=== PATIENT | female | born 1940 | race Caucasian/White ===

== ENCOUNTER 2018-01-23 13:55 | Outpatient (CLI) | payer MEDICARE, BC | END 2018-01-23 13:56 | disposition home or self-care (01) | LOC: BICRAD 13:55 | PROVIDERS: ATTEND Internal Medicine | DX: R05 Cough (principal) | CPT/HCPCS: 71046 ==

== ENCOUNTER 2018-04-24 08:17 | Outpatient (CLI) | payer MEDICARE, BC | END 2018-04-24 08:18 | disposition home or self-care (01) | LOC: BICMAMMO 08:17 | PROVIDERS: ATTEND Internal Medicine | DX: Z12.31 Encounter for screening mammogram for malignant neoplasm of breast (principal); Z80.3 Family history of malignant neoplasm of breast | CPT/HCPCS: 77063; 77067 ==

== ENCOUNTER 2019-05-19 14:25 | Outpatient (CLI) | payer MEDICARE, BC ==
--- NOTE | 2019-05-19 15:36 | RAD ---
EXAM: Chest PA and lateral: HISTORY: Cough x2 months COMPARISON: 01/23/2018 FINDINGS: Heart: Normal cardiac silhouette Aorta: Unremarkable Pulmonary vessels: Normal Costophrenic angles: Costophrenic angles are clear. Lungs: No masses or consolidation. Mild hyperinflation with chronic changes. Pneumothorax: No pneumothorax Osseous structures: No osseous abnormalities IMPRESSION: No acute cardiopulmonary process.
== END 2019-05-19 14:26 | disposition home or self-care (01) ==
LOC: BICRAD 14:25
PROVIDERS: ATTEND Internal Medicine
DX: R05 Cough (principal)
CPT/HCPCS: 71046

== ENCOUNTER 2020-10-06 10:52 | Outpatient (CLI) | payer MEDICARE, BC | END 2020-10-06 10:53 | disposition home or self-care (01) | LOC: BICMAMMO 10:52 | PROVIDERS: ATTEND Internal Medicine | DX: Z12.31 Encounter for screening mammogram for malignant neoplasm of breast (principal); N63.15 Unspecified lump in the right breast, overlapping quadrants | CPT/HCPCS: 77063; 77067 ==

== ENCOUNTER 2020-10-11 13:43 | Outpatient (CLI) | payer MEDICARE, BC | END 2020-10-11 13:44 | disposition home or self-care (01) | LOC: BICULT 13:43 | PROVIDERS: ATTEND Internal Medicine | DX: N63.12 Unspecified lump in the right breast, upper inner quadrant (principal) ==

== ENCOUNTER → 2020-10-13 | Day surgery (SDC) | payer MEDICARE, BC | LOC: BICULT 07:06 | PROVIDERS: ATTEND Internal Medicine | PROC: 0H9T3ZX Drainage of Right Breast, Percutaneous Approach, Diagnostic (ICD-10-PCS; principal; 2020-10-13) | DX: C50.811 Malignant neoplasm of overlapping sites of right female breast (principal) | CPT/HCPCS: 19083; 88305; 88341; 88342; 88361 ==

== ENCOUNTER 2020-11-09 10:24 | Outpatient (CLI) | payer MEDICARE, BC ==
[2020-11-09 11:31] LABS: #Basophils 0.1 10x3/uL (0.0-0.2); #Eosinphils 0.3 10x3/uL (0.0-0.5); #Monocytes 0.9 10x3/uL (0.0-1.1); #Neutrophils 3.8 10x3/uL (1.5-8.4); %Basophils 1.5 % (0.0-2.0); %Eosinophils 4.4 % (0.0-6.0); %Monocytes 12.9 % (0.0-10.0); %Neutrophils 57.4 % (40.0-75.0); Hemoglobin 13.4 g/dL (12.0-15.5); Mean Corpuscular Hemoglobin 28.5 pg (27.0-33.0); Mean Corpuscular Volume 89.1 fl (81.6-98.3); Mean Platelet Volume 10.6 fl (7.4-10.4); Platelet Count 266 10x3/uL (150-450); RBC Distribution Width 13.7 % (11.5-14.5); White Blood Cell (WBC) Count 6.6 10x3/uL (3.5-10.5)
[2020-11-09 11:50] LABS: Anion Gap 14 mmol/L (10-20); BUN (Urea Nitrogen) 20 mg/dL (9.8-20.1); Calc. Creatinine Clearance 0 mL/min (70-130); Calcium 9.1 mg/dL (7.8-10.44); Carbon Dioxide 24 mmol/L (23-31); Chloride 102 mmol/L (98-107); Glucose 83 mg/dL (83-110); Potassium 4.3 mmol/L (3.5-5.1); Sodium 136 mmol/L (136-145)
[2020-11-09 22:12] LABS: SARS-CoV-2 PCR by NAA Not Detected (NotDetected)
== END 2020-11-09 10:25 | disposition home or self-care (01) ==
LOC: LABBT 10:24
PROVIDERS: ATTEND Surgery
DX: Z01.818 Encounter for other preprocedural examination (principal); C50.911 Malignant neoplasm of unspecified site of right female breast; I44.0 Atrioventricular block, first degree; Z20.822 Contact with and (suspected) exposure to COVID-19
CPT/HCPCS: 80048; 85025; 93005; U0003; U0005; 87635; 93010

== ENCOUNTER 2020-11-14 06:53 | Day surgery (SDC) | payer MEDICARE, BC ==
[2020-11-13 13:39] VITALS: BMI 32.1
[2020-11-14] MEDS ORDERED: Lidocaine 1% w/Epinephrine 1:100K 20 ML VIAL ONE (09:51)
[2020-11-14] MEDS ORDERED: Bupivacaine 0.25% HCL 30 ML VIAL ONE (09:51)
[2020-11-14] MEDS ORDERED: Methylene Blue 50 MG/10 ML AMPUL ONE (09:51)
[2020-11-14] MEDS ORDERED: Fentanyl 100 MCG/2 ML VIAL ONE (09:55)
[2020-11-14] MEDS ORDERED: Lidocaine 1% PF 5 ML VIAL ONE (10:10)
[2020-11-14] MEDS ORDERED: PHENYLEPHRINE-NS 100 MCG/ML 10 ML SYRINGE ONE (10:10)
[2020-11-14] MEDS ORDERED: ePHEDrine Sulfate 50 MG/10 ML VIAL ONE (10:10)
[2020-11-14] MEDS ORDERED: Ondansetron PF 4 MG/2 ML Vial ONE (10:10)
[2020-11-14] MEDS ORDERED: Dexamethasone 20 MG/5 ML VIAL ONE (10:10)
[2020-11-14] MEDS ORDERED: PROPOFOL 200 MG/20 ML VIAL ONE (10:10)
== END 2020-11-14 13:45 | disposition home or self-care (01) ==
LOC: SDC 06:53
PROVIDERS: ATTEND Surgery
PROC: 0HBT0ZZ Excision of Right Breast, Open Approach (ICD-10-PCS; principal; 2020-11-14)
PROC: 07T50ZZ Resection of Right Axillary Lymphatic, Open Approach (ICD-10-PCS; 2020-11-14)
DX: C50.811 Malignant neoplasm of overlapping sites of right female breast (principal); I10 Essential (primary) hypertension; E66.9 Obesity, unspecified; Z68.32 Body mass index [BMI] 32.0-32.9, adult; Z17.0 Estrogen receptor positive status [ER+]; Z79.899 Other long term (current) drug therapy; Z88.5 Allergy status to narcotic agent
CPT/HCPCS: 19281; 19302; 38900; 76098; 78195; A9541; Q9968; 88307; 88342; J0690; J1100; J2405; J2704; J3010; S0020

== ENCOUNTER 2021-02-23 10:36 | Outpatient (CLI) | payer MEDICARE, BC | END 2021-02-23 10:37 | disposition home or self-care (01) | LOC: BICMAMMO 10:36 | PROVIDERS: ATTEND Internal Medicine Hematology & Oncology | DX: Z13.820 Encounter for screening for osteoporosis (principal); Z78.0 Asymptomatic menopausal state; M85.851 Other specified disorders of bone density and structure, right thigh; M85.852 Other specified disorders of bone density and structure, left thigh | CPT/HCPCS: 77080 ==

== ENCOUNTER 2022-05-20 14:31 | Outpatient (CLI) | payer MEDICARE, BC | END 2022-05-20 14:32 | disposition home or self-care (01) | LOC: BICRAD 14:31 | PROVIDERS: ATTEND Family Medicine | DX: M25.561 Pain in right knee (principal); M25.562 Pain in left knee; M17.0 Bilateral primary osteoarthritis of knee ==

== ENCOUNTER 2023-02-20 11:26 | Outpatient (CLI) | payer MEDICARE, BC | END 2023-02-20 11:27 | disposition home or self-care (01) | LOC: LABBT 11:26 | PROVIDERS: ATTEND Thoracic Surgery (Cardiothoracic Vascular Surgery) | DX: Z01.812 Encounter for preprocedural laboratory examination (principal); I25.10 Atherosclerotic heart disease of native coronary artery without angina pectoris; Z53.9 Procedure and treatment not carried out, unspecified reason | CPT/HCPCS: 80048; 85027 ==

== ENCOUNTER 2023-02-20 11:30 | Inpatient (IN) | payer MEDICARE, BC ==
[2023-02-20 14:37] LABS: Hematocrit 41.5 % (34.9-44.5); Hemoglobin 13.3 g/dL (12.0-15.5); Mean Corpuscular Hemoglobin 29.2 pg (27.0-33.0); Mean Corpuscular Volume 91.2 fl (81.6-98.3); Mean Platelet Volume 9.9 fl (7.4-10.4); Platelet Count 359 10x3/uL (150-450); RBC Distribution Width 13.2 % (11.5-14.5); Red Blood Cell (RBC) Count 4.55 10x6/uL (3.90-5.03); White Blood Cell (WBC) Count 7.6 10x3/uL (3.5-10.5)
[2023-02-20 15:08] LABS: Anion Gap 18 mmol/L (10-20); BUN (Urea Nitrogen) 11 mg/dL (9.8-20.1); Calc. Creatinine Clearance 0 mL/min (70-130); Calcium 9.1 mg/dL (7.8-10.44); Carbon Dioxide 24 mmol/L (23-31); Chloride 98 mmol/L (98-107); Estimated GFR 65; Glucose 88 mg/dL (83-110); Potassium 4.7 mmol/L (3.5-5.1); Sodium 135 mmol/L (136-145)
[2023-02-21] MEDS ORDERED: Lidocaine 1% MPF 2 ML VIAL ONE (07:05)
[2023-02-21] MEDS ORDERED: Albumin 5% 500 ML ONE (07:48)
[2023-02-21] MEDS ORDERED: fentaNYL 50 mcg/mL 1 mL Vial ONE ×2 (09:10)
[2023-02-21] MEDS ORDERED: Fentanyl 250 MCG/5 ML VIAL ONE (09:10)
[2023-02-21] MEDS ORDERED: Midazolam HCl 2 mg/2 ml Vial ONE ×2 (09:10)
[2023-02-21] MEDS ORDERED: Heparin 10,000 UNITS/1 ML VIAL 30,000 UNITS in Sodium Chloride 0.9% 1,000 ML FS SCH (09:15)
[2023-02-21] MEDS ORDERED: Norepinephrine 4 MG/4 ML VIAL ONE (09:16)
[2023-02-21] MEDS ORDERED: Heparin 5,000 UNITS/ML VIAL ONE (09:16)
[2023-02-21] MEDS ORDERED: Thrombin 5000 UNITS/5 ML VIAL ONE (09:16)
[2023-02-21] MEDS ORDERED: ePHEDrine Sulfate 50 MG/10 ML VIAL ONE (09:16)
[2023-02-21] MEDS ORDERED: Potassium Chloride 60 MEQ/30 ML VIAL ONE (09:16)
[2023-02-21] MEDS ORDERED: Aminocaproic Acid 5 GM/20 ML VIAL ONE (09:16)
[2023-02-21] MEDS ORDERED: Vancomycin 1 GM VIAL ONE (09:16)
[2023-02-21] MEDS ORDERED: Sodium Bicarb 50 MEQ/50 ML VIAL ONE (09:16)
[2023-02-21] MEDS ORDERED: Papaverine 60 MG/2 ML VIAL ONE (09:16)
[2023-02-21] MEDS ORDERED: Magnesium 5 GM/10 ML VIAL ONE (09:16)
[2023-02-21] MEDS ORDERED: Calcium Chloride 1 GM/10 ML Abboject SYRINGE ONE (09:16)
[2023-02-21] MEDS ORDERED: Protamine Sulfate 250 MG/25 ML VIAL ONE (09:16)
[2023-02-21] MEDS ORDERED: PHENYLEPHRINE-NS 100 MCG/ML 10 ML SYRINGE ONE (09:16)
[2023-02-21] MEDS ORDERED: Mannitol 12.5 GM/50 ML ONE (09:16)
[2023-02-21] MEDS ORDERED: Lidocaine 1% PF 5 ML VIAL ONE (09:16)
[2023-02-21] MEDS ORDERED: PROPOFOL 200 MG/20 ML VIAL ONE (09:16)
[2023-02-21] MEDS ORDERED: Cardioplegic Soln 1,000 ML BAG ONE (09:16)
[2023-02-21] MEDS ORDERED: Rocuronium Bromide 10 MG/ML (10ML VIAL) ONE (09:16)
[2023-02-21] MEDS ORDERED: Heparin 30,000 units/30 ml VIAL ONE (09:16)
[2023-02-21] MEDS ORDERED: Lidocaine 2% PF 100 mg/5 ml Syringe ONE (09:16)
[2023-02-21] MEDS ORDERED: Ondansetron PF 4 MG/2 ML Vial ONE (09:16)
[2023-02-21] MEDS ORDERED: Ondansetron PF 4 MG/2 ML Vial IVP PRN (12:28)
[2023-02-21] MEDS ORDERED: Guaifenesin DM 100-10/5 ML UDCUP PO PRN (12:28)
[2023-02-21] MEDS ORDERED: Mag-Al 1200 mg/1200 mg/30 ML UDCUP PO PRN (12:28)
[2023-02-21] MEDS ORDERED: Bisacodyl 10 MG SUPP PR PRN (12:28)
[2023-02-21] MEDS ORDERED: niCARdipine 25 MG in Sodium Chloride 0.9% 250 ML 250 ML IVPB PRN (12:28)
[2023-02-21] MEDS ORDERED: NOREPINEPHRINE 8 MG/250 ML-D5W 250 ML IVPB PRN (12:28)
[2023-02-21] MEDS ORDERED: Morphine 2 MG/ML VIAL SLOW IVP PRN (12:28)
[2023-02-21] MEDS ORDERED: DOPamine 400 MG/D5W 250 ML 250 ML IVPB PRN (12:28)
[2023-02-21] MEDS ORDERED: Hetastarch 6% 500 ML 500 ML IVPB PRN (12:28)
[2023-02-21] MEDS ORDERED: Ipratropium/Albuterol 3 ML NEB NEB PRN (12:28)
[2023-02-21] MEDS ORDERED: Post-Op Insulin Drip Protocol IVPB ONE (12:28)
[2023-02-21] MEDS ORDERED: Bisacodyl 5 MG TAB PO PRN (12:28)
[2023-02-21] MEDS ORDERED: Dextrose 5% in Water 1,000 ML IV PRN (12:45)
[2023-02-21] MEDS ORDERED: Insulin Regular 300 UNITS/3 ML VIAL SC PRN (12:45)
[2023-02-21] MEDS ORDERED: Glucagon 1 MG/ML KIT SC PRN (12:45)
[2023-02-21] MEDS ORDERED: Dextrose 50% Abboject 50 ML SYRINGE SLOW IVP PRN (12:45)
[2023-02-21] MEDS ORDERED: HUMULIN R 100 UNITS in Sodium Chloride 0.9% 100 ML IVPB SCH (12:45)
[2023-02-21 12:59] LABS: Hematocrit 28.6 % (36.0-47.0); Hemoglobin 9.3 g/dL (12.0-16.0); Mean Corpuscular HGB CONC 32.5 g/dL (32.0-36.0); Mean Corpuscular Hemoglobin 30.2 pg (27.0-31.0); Mean Corpuscular Volume 92.9 fl (78.0-98.0); Mean Platelet Volume 9.6 fL (7.4-10.4); Platelet Count 176 10x3/uL (130-400); RBC Distribution Width 13.5 % (11.5-14.5); Red Blood Cell (RBC) Count 3.08 mill/uL (4.20-5.40); White Blood Cell (WBC) Count 13.3 10x3/uL (4.8-10.8)
[2023-02-21 13:00] LABS: Actual Bicarbonate (HCO3a) 21.1 mEq/L (22-28); Base Excess (BEa) -2.8 mEq/L (-2.0 to +3.0); CO2 Tension 33.4 mmHg (35.0-45.0); Calcium, Ionized (arterial) 1.07 mmol/L (1.12-1.30); Carboxyhemoglobin (COHb) 0.1 gm% (0.0-3.0); Hematocrit-ABG 31 % (36.0-47.0); Hemoglobin (Hb) 10.4 g/dL (12.0-16.0); O2 Tension (PaO2), arterial 96.2 mmHg (> 60.0); Potassium - ABG Lab 3.75 mmol/L (3.70-5.30); pH, Arterial 7.419 (7.35-7.45)
[2023-02-21 13:01] LABS: Puncture Site Arterial Line
[2023-02-21 13:04] LABS: Delete Auto Diff?? YES; Manual Diff?? YES
[2023-02-21] MEDS: Lactated Ringer's 1,000 ML IV SCH (13:04)
[2023-02-21 13:13] LABS: INR-International Normal Ratio 1.3; PTT 32.7 sec (22.9-36.1); Prothrombin Time 17.1 sec (12.0-14.7)
[2023-02-21 13:29] LABS: Anion Gap 10 mmol/L (10-20); BUN (Urea Nitrogen) 12 mg/dL (9.8-20.1); Band 28 % (5-11); Burr Cells SLIGHT = 2-5 cells HPF (0-1); Calc. Creatinine Clearance 70 mL/min (70-130); Calcium 7.3 mg/dL (7.8-10.44); Carbon Dioxide 21 mmol/L (23-31); CellaVision Operator ID LAB.MJL; Chloride 111 mmol/L (98-107); Eosinophils 3 % (0-10); Estimated GFR 77; Glucose 154 mg/dL (83-110); Large Platelets 0.9 % (0-5); Lymphocytes 3 % (21-51); Metamyelocyte 1 % (0-0); Monocytes 3 % (0-10); Neutrophil 63 % (42-75); Ovalocytes SLIGHT = 2-5 cells HPF (0-1); Platelet Adequacy Comment Platelets Normal; Poikilocytosis SLIGHT = 6-15 cells HPF (0-5); Polychromasia SLIGHT = 2-3 cells HPF (0-2); Potassium 3.7 mmol/L (3.5-5.1); Sodium 138 mmol/L (136-145); Total Cell Count 116
[2023-02-21] MEDS: Potassium Chloride 20 MEQ/100 ML PREMIX BAG IVPB PRN (13:40)
[2023-02-21] MEDS: CEFAZOLIN 2 GM in Sodium Chloride 0.9% 100 ML IVPB SCH ×2 (13:41→22:00)
[2023-02-21] MEDS ORDERED: CEFAZOLIN 2 GM in Sodium Chloride 0.9% 100 ML IVPB SCH (15:00)
[2023-02-21 15:21] LABS: Actual Bicarbonate (HCO3a) 20.2 mEq/L (22-28); Base Excess (BEa) -4.3 mEq/L (-2.0 to +3.0); CO2 Tension 34.9 mmHg (35.0-45.0); Calcium, Ionized (arterial) 1.06 mmol/L (1.12-1.30); Carboxyhemoglobin (COHb) 0.4 gm% (0.0-3.0); Hematocrit-ABG 34 % (36.0-47.0); Hemoglobin (Hb) 11.6 g/dL (12.0-16.0); O2 Tension (PaO2), arterial 107.1 mmHg (> 60.0); Potassium - ABG Lab 3.73 mmol/L (3.70-5.30)
[2023-02-21] MEDS: fentaNYL 50 mcg/mL 1 mL Vial SLOW IVP PRN ×4 (15:41→22:34)
[2023-02-21 15:50] LABS: ALV-art Gradient 134.475 mmHg (0-20); Puncture Site Arterial Line
[2023-02-21] MEDS: Ketorolac Tromethamine 30 MG/ML VIAL IVP SCH (18:04)
[2023-02-21 18:49] LABS: Hematocrit 27.2 % (36.0-47.0); Hemoglobin 8.8 g/dL (12.0-16.0)
[2023-02-21 19:05] LABS: Potassium 3.7 mmol/L (3.5-5.1)
[2023-02-21] MEDS ORDERED: Famotidine/PF 20 mg/2ml Vial SLOW IVP SCH (21:00)
[2023-02-21] MEDS: Atorvastatin Calcium 20 MG TAB PO SCH (21:59)
[2023-02-22] MEDS: Ketorolac Tromethamine 30 MG/ML VIAL IVP SCH ×4 (00:49→18:02)
[2023-02-22] MEDS: traMADol HCl 50 MG TAB PO PRN ×3 (02:00→19:34)
[2023-02-22] MEDS: fentaNYL 50 mcg/mL 1 mL Vial SLOW IVP PRN ×7 (02:37→21:45)
[2023-02-22] MEDS: Lactated Ringer's 1,000 ML IV SCH (03:18)
[2023-02-22 04:06] LABS: #Basophils 0.1 thou/uL (0.0-0.2); #Neutrophils 11.2 thou/uL (1.40-6.50); %Basophils 0.4 % (0.0-1.0); %Eosinophils 0.1 % (0.0-10.0); %Lymphocytes 4.1 % (21.0-51.0); %Monocytes 7.7 % (0.0-10.0); %Neutrophils 87.1 % (42.0-75.0); Hematocrit 23.9 % (36.0-47.0); Hemoglobin 7.6 g/dL (12.0-16.0); Mean Corpuscular HGB CONC 31.8 g/dL (32.0-36.0); Mean Corpuscular Hemoglobin 30.2 pg (27.0-31.0); Mean Corpuscular Volume 94.8 fl (78.0-98.0); Mean Platelet Volume 10.1 fL (7.4-10.4); Platelet Count 183 10x3/uL (130-400); RBC Distribution Width 13.7 % (11.5-14.5); Red Blood Cell (RBC) Count 2.52 mill/uL (4.20-5.40); White Blood Cell (WBC) Count 12.8 10x3/uL (4.8-10.8)
[2023-02-22 04:31] LABS: Anion Gap 10 mmol/L (10-20); BUN (Urea Nitrogen) 13 mg/dL (9.8-20.1); Calc. Creatinine Clearance 64 mL/min (70-130); Calcium 7.4 mg/dL (7.8-10.44); Carbon Dioxide 20 mmol/L (23-31); Chloride 108 mmol/L (98-107); Estimated GFR 65; Glucose 122 mg/dL (83-110); Potassium 3.4 mmol/L (3.5-5.1); Sodium 135 mmol/L (136-145)
[2023-02-22] MEDS: CEFAZOLIN 2 GM in Sodium Chloride 0.9% 100 ML IVPB SCH (05:49)
[2023-02-22] MEDS: Magnesium 2 GM/50 ML(in water) 2 GM in Premix Bag 1 BAG IVPB SCH (09:31)
[2023-02-22] MEDS: Potassium Chloride 20 MEQ/100 ML PREMIX BAG IVPB PRN (09:31)
[2023-02-22] MEDS: Polyethylene Glycol 3350 17 GM Packet PO SCH (09:31)
[2023-02-22] MEDS: Aspirin Chewable 81 MG TAB PO SCH (09:31)
[2023-02-22] MEDS ORDERED: Insulin Glargine 30 UNITS/0.3 ML VIAL SC PRN (12:32)
[2023-02-22] MEDS: Acetaminophen 325 MG TAB PO PRN (19:35)
[2023-02-22] MEDS ORDERED: Gabapentin 100 MG CAP PO SCH (21:00)
[2023-02-22] MEDS: Lorazepam 1 MG TAB PO PRN (21:46)
[2023-02-22] MEDS: Atorvastatin Calcium 20 MG TAB PO SCH (21:46)
[2023-02-23 03:20] VITALS: BMI 33.0
[2023-02-23 05:36] LABS: #Basophils 0.1 thou/uL (0.0-0.2); #Eosinphils 0.6 thou/uL (0.0-0.7); %Basophils 0.6 % (0.0-1.0); %Lymphocytes 7.3 % (21.0-51.0); %Monocytes 6.8 % (0.0-10.0); %Neutrophils 80.4 % (42.0-75.0); Hematocrit 30.7 % (36.0-47.0); Mean Corpuscular HGB CONC 32.6 g/dL (32.0-36.0); Mean Corpuscular Hemoglobin 30.7 pg (27.0-31.0); Mean Corpuscular Volume 94.2 fl (78.0-98.0); Mean Platelet Volume 9.5 fL (7.4-10.4); Platelet Count 213 10x3/uL (130-400); RBC Distribution Width 13.8 % (11.5-14.5); Red Blood Cell (RBC) Count 3.26 mill/uL (4.20-5.40); White Blood Cell (WBC) Count 14.9 10x3/uL (4.8-10.8)
[2023-02-23] MEDS: Ketorolac Tromethamine 30 MG/ML VIAL IVP SCH ×4 (05:40→18:08)
[2023-02-23] MEDS: Potassium Chloride 20 MEQ/100 ML PREMIX BAG IVPB PRN (05:54)
[2023-02-23 05:57] LABS: Anion Gap 11 mmol/L (10-20); BUN (Urea Nitrogen) 11 mg/dL (9.8-20.1); Calc. Creatinine Clearance 71 mL/min (70-130); Calcium 7.7 mg/dL (7.8-10.44); Carbon Dioxide 22 mmol/L (23-31); Chloride 104 mmol/L (98-107); Estimated GFR 70; Glucose 122 mg/dL (83-110); Potassium 4.1 mmol/L (3.5-5.1); Sodium 133 mmol/L (136-145)
[2023-02-23] MEDS: Polyethylene Glycol 3350 17 GM Packet PO SCH (08:47)
[2023-02-23] MEDS: Aspirin Chewable 81 MG TAB PO SCH (08:47)
[2023-02-23] MEDS: Magnesium 2 GM/50 ML(in water) 2 GM in Premix Bag 1 BAG IVPB SCH (08:48)
[2023-02-23] MEDS ORDERED: Artificial Tear Sol 15 ML BOT EA EYE PRN (10:32)
[2023-02-23] MEDS ORDERED: Guaifenesin DM 100-10/5 ML UDCUP PO PRN (10:32)
[2023-02-23] MEDS ORDERED: Nitroglycerin 0.4 MG TAB (25 Tab Bottle) SL PRN (10:32)
[2023-02-23] MEDS ORDERED: Milk Of Magnesia 30 ML UDCUP PO PRN (10:32)
[2023-02-23] MEDS ORDERED: Mineral Oil ENEMA PR PRN (10:32)
[2023-02-23] MEDS ORDERED: diphenhydrAMINE 25 MG CAP PO PRN (10:32)
[2023-02-23] MEDS: Acetaminophen 325 MG TAB PO PRN ×2 (11:25→18:07)
[2023-02-23] MEDS: traMADol HCl 50 MG TAB PO PRN (11:28)
[2023-02-23] MEDS: Atorvastatin Calcium 40 MG TAB PO SCH (20:33)
[2023-02-23] MEDS: Lorazepam 1 MG TAB PO PRN (20:33)
[2023-02-23] MEDS: Gabapentin 300 MG CAP PO SCH (20:33)
[2023-02-23] MEDS: Melatonin 3 MG TAB PO SCH (20:34)
[2023-02-24] MEDS: Ketorolac Tromethamine 30 MG/ML VIAL IVP SCH ×4 (00:32→18:06)
[2023-02-24] MEDS: Gabapentin 300 MG CAP PO SCH ×2 (07:44→21:02)
[2023-02-24] MEDS: Sertraline 100 MG TAB PO SCH (07:44)
[2023-02-24] MEDS: Aspirin Chewable 81 MG TAB PO SCH (07:44)
[2023-02-24] MEDS: Potassium Chloride 10 MEQ TAB PO SCH (07:45)
[2023-02-24] MEDS: Furosemide 40 MG TAB PO SCH (07:45)
[2023-02-24] MEDS: Polyethylene Glycol 3350 17 GM Packet PO SCH (07:45)
[2023-02-24] MEDS ORDERED: Aluminum & Magnesium Hydroxide 60 ML, Lidocaine 2% Viscous Solution 30 ML, diphenhydrAM... SSW PRN (19:30)
[2023-02-24] MEDS ORDERED: Ipratropium/Albuterol 3 ML NEB NEB SCH (20:30)
[2023-02-24] MEDS: Lorazepam 1 MG TAB PO PRN (21:02)
[2023-02-24] MEDS: Atorvastatin Calcium 40 MG TAB PO SCH (21:02)
[2023-02-24] MEDS: Melatonin 3 MG TAB PO SCH (21:03)
[2023-02-25] MEDS ORDERED: Aluminum & Magnesium Hydroxide 60 ML, Lidocaine 2% Viscous Solution 30 ML, diphenhydrAM... SSW PRN (07:30)
[2023-02-25] MEDS: Sertraline 100 MG TAB PO SCH (08:48)
[2023-02-25] MEDS: Furosemide 40 MG TAB PO SCH (08:48)
[2023-02-25] MEDS: Gabapentin 300 MG CAP PO SCH (08:48)
[2023-02-25] MEDS: Aspirin Chewable 81 MG TAB PO SCH (08:48)
[2023-02-25] MEDS: Potassium Chloride 10 MEQ TAB PO SCH (08:48)
[2023-02-25] MEDS: Polyethylene Glycol 3350 17 GM Packet PO SCH (08:53)
[2023-02-25 16:07] VITALS: BP 138/66; TEMP 97.7
== END 2023-02-25 14:45 | disposition home or self-care (01) | DRG 236 ==
LOC: SURG A 02-21 06:40 → CCU 02-21 12:22 → 2NO 02-24 03:36
PROVIDERS: ADMIT Thoracic Surgery (Cardiothoracic Vascular Surgery); ATTEND Thoracic Surgery (Cardiothoracic Vascular Surgery)
PROC: 02100Z9 Bypass Coronary Artery, One Artery from Left Internal Mammary, Open Approach (ICD-10-PCS; principal; 2023-02-21)
PROC: 021109W Bypass Coronary Artery, Two Arteries from Aorta with Autologous Venous Tissue, Open Approach (ICD-10-PCS; 2023-02-21)
PROC: 06BQ0ZZ Excision of Left Saphenous Vein, Open Approach (ICD-10-PCS; 2023-02-21)
PROC: 5A1221Z Performance of Cardiac Output, Continuous (ICD-10-PCS; 2023-02-21)
PROC: 02L70CK Occlusion of Left Atrial Appendage with Extraluminal Device, Open Approach (ICD-10-PCS; 2023-02-21)
PROC: 4A133R1 Monitoring of Arterial Saturation, Peripheral, Percutaneous Approach (ICD-10-PCS; 2023-02-21)
PROC: 30233N1 Transfusion of Nonautologous Red Blood Cells into Peripheral Vein, Percutaneous Approach (ICD-10-PCS; 2023-02-22)
DX: I25.10 Atherosclerotic heart disease of native coronary artery without angina pectoris (principal); Z88.6 Allergy status to analgesic agent; Z79.82 Long term (current) use of aspirin; Z79.899 Other long term (current) drug therapy; I10 Essential (primary) hypertension; E78.5 Hyperlipidemia, unspecified; Z90.89 Acquired absence of other organs; Z89.029 Acquired absence of unspecified finger(s)
CPT/HCPCS: 36416; 36430; 71045; 80048; 82805; 82947; 85025; 85027; 85610; 85730; 86850; 86900; 86901; 93005; 93010; 93798; 94002; 94640; C1751; J1644; J1815; J1885; J2001; J2150; J2250; J2405; J2440; J2704; J2720; J3010; J3370; J3475; J3480; J3490; J7120; J7620; P9016; P9045; S0017; S0028

== ENCOUNTER 2023-03-25 17:30 | Outpatient (CLI) | payer MEDICARE, BC | END 2023-03-25 17:31 | disposition home or self-care (01) | LOC: SLEEPLAB 17:30 | PROVIDERS: ATTEND Family Medicine | DX: G47.33 Obstructive sleep apnea (adult) (pediatric) (principal) | CPT/HCPCS: 95800 ==

== ENCOUNTER 2024-01-21 02:46 | Inpatient (IN) | payer MEDICARE ==
[2024-01-21 04:48] VITALS: BMI 28.1
[2024-01-21] MEDS: Sodium Chloride 0.9% 1,000 ML IV SCH (18:23)
[2024-01-21] MEDS: Ondansetron PF 4 MG/2 ML Vial IVP PRN (18:25)
[2024-01-21] MEDS: Acetaminophen 325 MG TAB PO PRN (18:26)
[2024-01-21] MEDS: Pantoprazole DR 40 MG TAB PO SCH (20:43)
[2024-01-21] MEDS: levETIRAcetam 500 MG TAB PO SCH (20:43)
[2024-01-22 07:28] LABS: #Basophils 0.06 10x3/uL (0.0-0.2); %Basophils 0.7 % (0.0-1.0); %Eosinophils 2.6 % (0.0-10.0); %Lymphocytes 15.6 % (21.0-51.0); %Monocytes 10.3 % (0.0-10.0); %Neutrophils 70.2 % (42.0-75.0); Hematocrit 39.4 % (36.0-47.0); Hemoglobin 12.3 g/dL (12.0-16.0); Mean Corpuscular HGB CONC 31.2 g/dL (32.0-36.0); Mean Corpuscular Hemoglobin 30.8 pg (27.0-31.0); Mean Corpuscular Volume 98.5 fL (78.0-98.0); Mean Platelet Volume 9.9 fL (7.4-10.4); Platelet Count 236 10x3/uL (130-400); RBC Distribution Width 12.7 % (11.5-14.5)
[2024-01-22 07:54] LABS: ALT (SGPT) 12 U/L (8-55); AST (SGOT) 17 U/L (5-34); Albumin 3.8 g/dL (3.4-4.8); Alkaline Phosphatase 52 U/L (40-110); Anion Gap 13 mmol/L (10-20); BUN (Urea Nitrogen) 12 mg/dL (9.8-20.1); Bilirubin, Total 0.7 mg/dL (0.2-1.2); Calc. Creatinine Clearance 65 mL/min (70-130); Calcium 8.7 mg/dL (7.8-10.44); Carbon Dioxide 21 mmol/L (23-31); Chloride 107 mmol/L (98-107); Estimated GFR 77; Globulin 3.2 g/dL (2.4-3.5); Glucose 79 mg/dL (83-110); Magnesium 2.1 mg/dL (1.6-2.6); Phosphorus 2.3 mg/dL (2.3-4.7); Potassium 3.5 mmol/L (3.5-5.1); Sodium 137 mmol/L (136-145)
[2024-01-22 08:00] LABS: #Basophils 0.06 10x3/uL (0.0-0.2); %Basophils 0.7 % (0.0-1.0); %Eosinophils 2.4 % (0.0-10.0); %Lymphocytes 13.6 % (21.0-51.0); %Monocytes 11.4 % (0.0-10.0); %Neutrophils 71.4 % (42.0-75.0); Hemoglobin 11.8 g/dL (12.0-16.0); Mean Corpuscular HGB CONC 31.9 g/dL (32.0-36.0); Mean Corpuscular Hemoglobin 30.7 pg (27.0-31.0); Mean Corpuscular Volume 96.4 fL (78.0-98.0); Mean Platelet Volume 9.8 fL (7.4-10.4); Platelet Count 241 10x3/uL (130-400); RBC Distribution Width 12.7 % (11.5-14.5); Red Blood Cell (RBC) Count 3.84 mill/uL (4.20-5.40)
[2024-01-22 08:05] LABS: Prothrombin Time 13.3 sec (12.0-14.7)
[2024-01-22] MEDS: Acetaminophen 500 MG TAB PO SCH (08:40)
[2024-01-22] MEDS: rOPINIRole HCl 2 MG TAB PO SCH (08:41)
[2024-01-22] MEDS: Ezetimibe 10 MG TAB PO SCH (08:41)
[2024-01-22] MEDS: Cyclobenzaprine 10 MG TAB PO SCH (08:43)
[2024-01-22] MEDS: levETIRAcetam 500 MG TAB PO SCH (08:43)
[2024-01-22] MEDS: Sertraline 100 MG TAB PO SCH (08:44)
[2024-01-22 13:14] VITALS: BP 137/78; TEMP 98.3
== END 2024-01-22 16:44 | disposition home or self-care (01) | DRG 86 ==
LOC: SURG B 03:36
PROVIDERS: ADMIT Surgery; ATTEND Surgery
DX: S06.5X0A Traumatic subdural hemorrhage without loss of consciousness, initial encounter (principal); S12.400A Unspecified displaced fracture of fifth cervical vertebra, initial encounter for closed fracture; W18.30XA Fall on same level, unspecified, initial encounter; I10 Essential (primary) hypertension; S00.12XA Contusion of left eyelid and periocular area, initial encounter; S00.11XA Contusion of right eyelid and periocular area, initial encounter; Z98.890 Other specified postprocedural states; Z88.5 Allergy status to narcotic agent; Z79.82 Long term (current) use of aspirin; Z79.899 Other long term (current) drug therapy; S06.360A Traumatic hemorrhage of cerebrum, unspecified, without loss of consciousness, initial encounter; E78.00 Pure hypercholesterolemia, unspecified; Z87.891 Personal history of nicotine dependence; W19.XXXA Unspecified fall, initial encounter
CPT/HCPCS: 36415; 36430; 70450; 70486; 72125; 72128; 76377; 80053; 83735; 83880; 84100; 84443; 84484; 85025; 85610; 85730; 86850; 86900; 86901; 93005; 93010; 96374; 96375; J0360; J2405; J3010; J7050; P9035